=== PATIENT | male | born 1990 | race Caucasian/White ===

== ENCOUNTER 2016-12-31 10:14 | Inpatient (IN) | payer OTHER ==
[~2016-12-31] VITALS: Ht 182.9 cm; Wt 69.7 kg
[~2016-12-31 10:14] MED LIST: FLEXERIL5 MG PO; NAPROSYN500 MG PO; TRAMADOL HCL50 MG PO
[2016-12-31 11:38] LABS: EOSINOPHIL (%) 0.9 % (0-5); EOSINOPHIL COUNT 0.1 K/uL (0-0.3); HEMATOCRIT 46.4 % (38.0-50.0); IMMATURE GRANULOCYTE (%) 0.2 % (0.0-0.7); INSTRUMENT ABS NEUTROPHIL CT 4.6 K/uL; LYMPHOCYTE COUNT 1.2 K/uL (1.0-2.8); MCHC 33.2 G/DL (30.0-36.0); MCV 90.4 FL (86-99); MEAN PLAT.VOLUME 9.4 uM^3 (9.0-12.4); MONOCYTE (%) 5.4 % (3-12); MONOCYTE COUNT 0.3 K/uL (0-0.8); NEUTROPHIL (%) 73.4 % (45-76); NEUTROPHIL COUNT 4.6 K/uL (1.8-6.4); PLATELET COUNT 222 K/uL (156-360); RBC DIS.WIDTH-CV 12.7 % (11.8-14.6); RBC DIS.WIDTH-SD 42.2 % (39-53); RED BLOOD COUNT 5.13 M/uL (4.00-5.50); WHITE BLOOD COUNT 6.3 K/uL (4.1-10.2)
[2016-12-31 11:48] LABS: CHLORIDE 106 mEq/L (99-109); SODIUM 138 mEq/L (136-147)
[2016-12-31 11:51] LABS: GLUCOSE 99 mg/dL (70-99)
[2016-12-31 11:52] LABS: ANION GAP 8 MEQ/L (2-14); TOTAL BILIRUBIN 0.6 mg/dL (0.0-1.0)
[2016-12-31] MEDS ORDERED: AMBIEN10 MG PO (11:52)
[2016-12-31] MEDS ORDERED: NEURONTIN400 MG PO (11:53)
[2016-12-31] MEDS ORDERED: SEROQUEL XR300 MG PO (11:53)
[2016-12-31 11:54] LABS: ALKALINE PHOSPHATASE 82 IU/L (3-129); GFR ESTIMATE (CALCULATED) > 59 mL/min/; SERUM ETHYL ALCOHOL < 10 mg/dL
[2016-12-31 11:55] LABS: UREA NITROGEN (BUN) 13 mg/dL (9-23)
[2016-12-31 12:47] LABS: AMPHETAMINE NEGATIVE (500 ng/mL); BARBITURATES NEGATIVE (200 ng/mL); BENZODIAZEPINES NEGATIVE (150 ng/mL); COCAINE NEGATIVE (150 ng/mL); INTERNAL CONTROLS VALID? YES; METHADONE NEGATIVE (200 ng/mL); METHAMPHETAMINE NEGATIVE (500 ng/mL); OPIATES (MORPHINE) NEGATIVE (100 ng/mL); OXYCODONE NEGATIVE (100 ng/mL); PHENCYCLIDINE NEGATIVE (25 ng/mL); PROPOXYPHENE NEGATIVE (300 ng/mL); THC CANNABINOIDS NEGATIVE (50 ng/mL); TRICYCLIC ANTIDEPRESSANTS PRESUMPTIVE POSITIVE (300 ng/mL)
[2016-12-31 14:04] VITALS: BP 117/63
[2016-12-31 16:37] VITALS: BP 118/67
[2017-01-01 09:24] VITALS: BP 115/67
[2017-01-01 16:12] VITALS: BP 109/63
[2017-01-02 07:55] VITALS: BP 113/60
[2017-01-02 16:02] VITALS: BP 117/63
[2017-01-03 08:12] VITALS: BP 104/57
[2017-01-03] MEDS ORDERED: SEROQUEL XR300 MG PO (09:21)
[2017-01-03] MEDS ORDERED: BUPROPION XL150 MG PO (09:21)
[2017-01-03] MEDS ORDERED: NEURONTIN400 MG PO (09:21)
== END 2017-01-03 15:02 | disposition home or self-care (01) | DRG 885 ==
LOC: EME 10:14 → EDOF 11:39 → 1WEST 11:39
PROVIDERS: Emergency Medicine
DX: F33.9 Major depressive disorder, recurrent, unspecified (principal); F11.20 Opioid dependence, uncomplicated; R45.851 Suicidal ideations; F60.9 Personality disorder, unspecified; F17.210 Nicotine dependence, cigarettes, uncomplicated
CPT/HCPCS: 80053; 85025; 90839; 99281; 99285; G0480; Q0177